=== PATIENT | female | born 1955 | race Caucasian/White ===

== ENCOUNTER 2017-10-17 06:24 | Inpatient (IN) | payer BC, MEDICARE, OTHER ==
--- NOTE | 2017-09-26 07:44 | ANES ---
Anesthesia Pre Procedure Eval HOME MEDICATIONS Ibuprofen 400 mg PO Q4H PRN 09/25/17 [Last Taken Unknown] Allergies/Adverse Reactions: Allergies Allergy/AdvReac Type Severity Reaction Status Date / Time No Known Drug Allergies Allergy Verified 09/25/17 12:27 - Planned Procedure Medication List Reviewed:: Yes Allergies Verified: Yes Medical History (Last Reviewed 09/26/17 @ 07:40 by Everett Rojas CRNA) Cancer Consumes alcohol occasionally Degenerative joint disease of knee Lives with spouse No history of regular tobacco use No illicit drug use Postmenopausal Shingles Surgical History (Last Reviewed 09/26/17 @ 07:40 by Everett Rojas CRNA) H/O Spinal surgery History of hysterectomy History of tonsillectomy History of wisdom tooth extraction Family History (Last Reviewed 09/26/17 @ 07:40 by Everett Rojas CRNA) Sister Bladder cancer Mother A-fib COPD (chronic obstructive pulmonary disease) Grandfather Throat cancer Father Asthma Aunt Breast cancer - Family Anesthesia History Family History:: no untoward family reactions to anesthesia, no familial bleeding tendencies, no family history of clotting disorders, no family history of premature - Airway/Neck/Teeth Within Normal Limits:: Yes Teeth Condition: Intact Neck Exam: non-tender, full range of motion Mallampatti Score: 2 Thyromental (T-M) distance: > 6 cm Mandibulo Hyoid distance: > 3 cm - Respiratory Respiratory: chest non-tender, lungs clear Smoking Status: Never smoker Sleep Apnea currently treated: No Sleep Apnea by current assessment: No - Cardiovascular Patient History - Cardiac/Respiratory: No pertinent hx Tolerates Activity: Good Heart Sounds: S1 & S2, Regular - Anesthesia Assessment and Plan Narrative: Exaggerated neuro response to reflex testing, RLS and other exaggerated neurologic responses since her spine surgery 30 years ago. ASA Class: II Anesthesia Type Plan: Block, Spinal Planned difficult intubation/equipment available: No - adductor canal block for post op pain relief
[~2017-10-17 06:24] MED LIST: MORPHINE SULFATE 15 MG TABLET.SA PO PRN; ROPIVACAINE HCL/PF 100 MG, EPINEPHrine 0.2 MG, KETOROLAC TROMETHAMINE 30 MG in NORMAL S... IJ PRN; TRANEXAMIC ACID 1,000 MG in NORMAL SALINE 100 ML IV PRN; ceFAZolin SODIUM 1 GM VIAL IV PRN
[2017-10-17] MEDS: RINGER'S SOLUTION,LACTATED 1,000 ML IV PRN ×3 (07:13→09:14)
[2017-10-17] MEDS ORDERED: oxyCODONE HCL/ACETAMINOPHEN 1 TAB TABLET PO PRN (09:53)
[2017-10-17] MEDS ORDERED: diphenhydrAMINE HCL 50 MG/ML VIAL IV PRN (09:53)
[2017-10-17] MEDS ORDERED: ONDANSETRON HCL/PF 2 MG/ML VIAL IV PRN (09:53)
[2017-10-17] MEDS ORDERED: MAGNESIUM HYDROXIDE 30 ML UDC PO PRN (09:53)
[2017-10-17] MEDS ORDERED: MORPHINE SULFATE 2 MG/ML DISP.SYRIN IV PRN (09:53)
[2017-10-17] MEDS ORDERED: ZOLPIDEM TARTRATE 5 MG TABLET PO PRN (09:53)
[2017-10-17] MEDS ORDERED: MAG HYDROX/ALUMINUM HYD/SIMETH 30 ML UDC PO PRN (09:53)
[2017-10-17] MEDS ORDERED: ACETAMINOPHEN 500 MG TABLET PO PRN (09:53)
--- NOTE | 2017-10-17 09:53 | OR ---
Operative Report - Dictated Report Narrative: Date: 10/17/2017 Preoperative diagnosis: Right Knee degenerative joint disease. Postoperative diagnosis: Right Knee degenerative joint disease. Procedure: Right Total knee arthroplasty. Surgeon: Edward Foreman M.D. Sales Order Administrator: Tripp Pimentel PA-C Anesthesia: Spinal with regional block and local periarticular joint injection. Complications: None Specimens: Bone for disposal. Estimated blood loss: Minimal. Tourniquet time: 87 Minutes at 325 millimeters of mercury. Retained implants: Depuy Attune size 4 right lugged cemented posterior stabilized femoral component. Size 5 fixed-bearing cemented tibial platform. 4 by 7 millimeter posterior stabilized cross-linked tibial insert. 35 millimeter medialized patella button. Indications: Mrs. Yoon is a 61-year-old female who has had long-standing right knee pain and arthrosis. This patient was followed in my clinic for period of time with significant complaints of right knee pain consistent with arthritic changes. She had failed conservative measures including, but not limited to, activity modification, passage of time, medications, and other conservative measures. Patient wished to proceed with surgical treatment. The risks, benefits, and alternatives were discussed in clinic. The risks of , blood clots, bleeding, infection, nerve/tendon blood vessel/ injury, malposition of components, intraoperative fracture, postoperative limited range of motion, persistent pain, failure of components, and need for additional procedures. Patient wished to proceed consent was obtained after answering all questions. Procedure: After marking the correct extremity on the floor, the patient was taken to the operating room. A timeout was performed. IV antibiotics consisting of Ancef were administered prior to the procedure. A regional followed by spinal anesthetic was induced by anesthesia, per my request, on the operative table with all bony prominences well-padded. Camp catheter was placed, and a bump was placed under the operative side buttock. SCDs and RAUL hose were utilized on the nonoperative leg. A well-padded tourniquet was applied to the operative thigh. The operative leg was then pre-scrubbed with alcohol prepped, and draped in a standard sterile fashion. After exsanguinating the extremity with an Esmarch bandage, the tourniquet was inflated. After marking out the anterior knee for standard incision centered over the patella, the skin was incised and dissected down to the joint retinaculum. The joint retinaculum was marked out as well as the horizontal axis of the patella, and a standard medial parapatellar arthrotomy was then made. The most proximal aspect of the quadriceps tendon and the patella tendon insertion were protected from release. A partial synovectomy was performed as well as a resection of the infrapatellar fat pad. The distal femoral fat pad proximal to the trochlea was also resected using cautery. The soft tissues were elevated off the medial aspect of the proximal tibia using a Soto elevator ensuring that we did not transect the medial collateral ligament. Upon initial evaluation range of motion was approximately 0 degrees to 130 degrees of flexion. There were signs of advanced arthrosis in the medial, lateral, and patellofemoral joint spaces. There were large marginal osteophytes which were removed with a rongeur. The knee was hyperflexed and the patella was tucked laterally. Protecting the surrounding soft tissues with Homans, an entry drill was placed down the femoral canal using Whitesides line for guidance into the entry point. The intramedullary femoral alignment selene was utilized in order to cut the distal femur in 5 degrees of valgus resecting 10 millimeters of bone. Next the distal femur was sized to a size 4. A posterior referencing guide was utilized to place the distal femoral cutting block in 3 degrees of external rotation. This was pinned into place. The rotation was confirmed both visually and based on anatomic landmarks. The 4 in 1 cutting jig of the appropriate size was utilized in order to make all bony cuts. The angle wing was used to ensure no notching. Retractors were utilized in order to protect surrounding soft tissues. This cut did not result in any excessive notching. We then cut the box centered over the distal femur. This allowed for resection of the anterior and posterior cruciate ligaments. I then turned my attention to the preparation of the tibia. Using an extra medullary tibial alignment selene, 3 millimeters of bone was resected off the medial articular surface. This was made perpendicular to the mechanical axis of the joint with the alignment selene centered over the ankle mortise. The alignment selene was checked and was noted to be parallel to the mechanical axis, centered over the medial one third of the tibial tubercle, paralleling the anterior surface of the tibia. We then turned our attention to the remaining meniscus and soft tissues. These were removed while protecting the surrounding ligaments and soft tissues. The marginal osteophytes off the anterior, posterior, medial, lateral aspects of the femur and tibia were removed. The tibia was sized out to a size 5. Next the tibia was drilled and punched in an externally rotated position. Next the trial femur and a series of tibial inserts were utilized in order to allow for full extension and maximal flexion. It was found that a 7 millimeter insert gave the best range of motion and stability at multiple flexion points as well as at full extension there was less than 2 mm of gapping both medially and laterally. There is minimal anterior translation with the knee at 90 degrees of flexion and no signs of being able to dislocate the knee. The patella was then prepared. The initial thickness was 22 millimeters. This was reamed down to 12 millimeters parallel to the anterior surface of the patella. It was sized out to a size 35 medialized patella button. This was then drilled and trialed. Without any medial restraint the patella tracked appropriately and did not sublux or dislocate. At this point, it was felt these were the appropriate sized implants, and all trials were removed. The standard periarticular joint injection consisting of ropivacaine, Toradol, and epinephrine were injected into the periarticular joint tissues. The bony surfaces were thoroughly irrigated with a pulsatile- suction saline irrigation device. A bone plug from the prior resected anterior chamfer cut was placed into the drill hole at the distal femur. The bony surfaces were then dried in preparation for placement of the implants. The cement was vacuum mixed per the asp developer's instructions. The cement was placed on the dry bony surfaces and posterior aspect of the implants. The implants were impacted into place, removing all extruded cement. At this point anesthesia administered tranexamic acid per protocol intravenously. The knee was placed in extension with axial loading with the trial insert while the cement cured. Once the cement cured, all remaining extruded cement was removed. The knee was placed through a range of motion with the trial insert to ensure appropriate range of motion and stability. Final range of motion was approximately 0 to 125 degrees. The knee was again thoroughly irrigated with pulsatile saline lavage. The final polyethylene insert was then impacted into place ensuring no retained soft tissues. The remaining periarticular joint injection was injected. A medium Hemovac drain was placed exiting superior laterally. The knee was then placed over a triangle and the arthrotomy was closed with interrupted #1 Vicryl after thoroughly irrigating the joint. The deep and subcutaneous tissues were closed with interrupted 0 and 3-0 Vicryl respectively. Skin was closed with a running subcutaneous 3-0 Monocryl and Prineo Dermabond dressing. 4 x 4's, Sof-Rol, and a full leg Nathaniel wrap were applied. All sponge, needle, blade, and instrument counts were correct prior to closing the wounds. Postoperative condition: The patient was awoken and transferred to the postanesthesia care unit in stable condition. Plan is to be admitted to the inpatient medical/surgical floor postoperatively for 24 hours of IV antibiotics , physical therapy, occupational therapy, and medical comanagement. Patient will be weightbearing as tolerated with range of motion as tolerated. DVT prophylaxis will be with SCDs, RAUL hose, and pharmacological anticoagulation. Anticipated hospital stay is approximately 1-3 days.
--- NOTE | 2017-10-17 10:10 | ANES ---
Post Anesthesia Discharge - Transfer of Care Transfer of Care handoff given to nurse: Yes - Discharge from PACU Discharge from PACU when meets criteria: Yes - Discharge to ASU Discharge to ASU-no complications/pt stable: Yes
--- NOTE | 2017-10-17 10:13 | ANES ---
Anesthesia Procedure Note Procedure Note: ANESTHESIA PROCEDURE NOTE Date of Procedure: 10/17/2017. Time of procedure: 0750. Performed by: Kishan Roberson CRNA Reconciliation Specialist: None. Preprocedure diagnosis: Right knee degenerative joint disease. Post procedure diagnosis: Same. Procedure: Right ultrasound guided adductor canal block for postoperative analgesia. Indications: The patient is a 61 -year-old female, requesting right ultrasound- guided abductor canal block for postoperative analgesia related to right total knee arthroplasty. Findings: See below. Details of the procedure: The tissue over the intended target site was cleansed with ChloraPrepand draped in a sterile fashion. 2 ml Lidocaine 1 % was infiltrated to the skin and subcutaneous tissue at the intended target site. Under sterile technique and ultrasound guidance a 18-gauge Tuohy needle was inserted through the right sartorius muscle to the saphenous nerve just anterior and medial to the superficial femoral artery and vein. 15 mL's of 0.5% bupivacaine was injected after negative aspiration for blood. Needle tip and spread of local anesthetic surrounding the saphenous nerve was observed throughout the injection with real time ultrasound visualization. No complications were noted. The images were retained in the Hospital medical database . EBL: Minimal. Fluids: N/A. Specimen: N/A. Post procedure condition: The patient tolerated the procedure well. No complications were noted. Thank you for this consultation. Kishan Roberson CRNA
[2017-10-17] MEDS: DEXTROSE 5%-LACTATED RINGERS 1,000 ML IV PRN ×2 (10:59→20:13)
[2017-10-17] MEDS: KETOROLAC TROMETHAMINE 15 MG/ML VIAL IV SCH ×3 (11:00→21:42)
[2017-10-17] MEDS: ceFAZolin SODIUM 1 GM in DEXTROSE 5 % IN WATER 100 ML IV SCH ×6 (11:10→23:40)
--- NOTE | 2017-10-17 12:36 | ANES ---
Post Anesthesia Assessment - Vital Signs Vitals: Last Vital Signs Temp 36.4 C 10/17/17 11:33 Pulse 65 10/17/17 12:18 Resp 16 10/17/17 12:18 BP 130/61 10/17/17 12:03 Pulse Ox 98 10/17/17 12:18 Airway Patency: Normal - Mental Status Level Of Consciousness: Awake - Pain Level Pain Score: 0 - N/V Assessment Nausea/Vomiting Presence: None Dehydration:: No
[2017-10-17] MEDS: MORPHINE SULFATE 15 MG TABLET.SA PO SCH (20:24)
[2017-10-17] MEDS ORDERED: SENNOSIDES/DOCUSATE SODIUM 1 TAB TABLET PO SCH (21:00)
[2017-10-18] MEDS: KETOROLAC TROMETHAMINE 15 MG/ML VIAL IV SCH ×2 (03:53→09:01)
[2017-10-18 04:24] LABS: Hematocrit 32.2 % (37.0-47.0); Hemoglobin 10.6 gm/dL (12.5-16.0); Mean Cell Volume 91.7 fl (78-100); Mean Corpuscular Hemoglobin 30.2 pg (27-31); Mean Corpuscular Hgb Conc 32.9 g/dl (32-36); Mean Platelet Volume 8.8 fl (8-12.5); Platelet Count 180 K/mm3 (150-450); Red Blood Count 3.51 M/mm3 (4.2-5.4); Red Cell Distribution Width 13.2 % (11.5-14.0); White Blood Count 6.6 K/mm3 (4.0-10.5)
[2017-10-18 04:35] LABS: Anion Gap 7.9 mmol/L (6.8-13.8); BUN/Creatinine Ratio 17.5 (9.0-21.6); Calcium * 8.6 mg/dL (7.9-10.9); Estimated Creat Clear 97.6; Potassium 3.9 mmol/L (3.4-4.6)
[2017-10-18] MEDS ORDERED: MORPHINE SULFATE 10 MG/0.5 ML SYRINGE PO PRN (08:52)
[2017-10-18] MEDS ORDERED: ENOXAPARIN SODIUM 40 MG/0.4 ML SYRG SC SCH (08:54)
[2017-10-18] MEDS: MORPHINE SULFATE 15 MG TABLET.SA PO SCH (09:00)
--- NOTE | 2017-10-18 12:25 | DS ---
(1) Acute blood loss anemia Problem: Acute (2) S/P total knee replacement Problem: Acute Qualifiers: Laterality: right Qualified Code(s): Z96.651 - Presence of right artificial knee joint (3) Degenerative joint disease of knee Problem: Chronic Qualifiers: Osteoarthritis type: primary Laterality: bilateral Qualified Code(s): M17.0 - Bilateral primary osteoarthritis of knee Description of Stay: Mrs. Yoon was admitted to the floor after undergoing right total knee arthroplasty. Tolerated this well. Was admitted to the floor postoperatively for 24 hours of IV antibiotics, pain control, medical comanagement, and occupational and physical therapy. OT and PT were consulted to assist with activities of daily living and ambulation. Was made weightbearing as tolerated with range of motion as tolerated. Pain was initially controlled with IV regimen. This was transitioned to oral once tolerating a by mouth intake. Was resumed on home diet and medications. Had a Camp catheter inserted and the operating room which was discontinued on postoperative day 1. A drain was placed intraoperatively into the knee which was discontinued on postoperative day 1. Lovenox SCD and RAUL hose were utilized for DVT prophylaxis. Vital signs remained stable to the hospital course. Serial labs were obtained which showed a final hemoglobin of 10.6 grams. BMP was reviewed and was stable. Physical examination throughout the hospital course showed an extremity that had sensation that was intact to light touch, palpable pulses, a benign wound, motor intact to the toes, ankle, and knee. Knee range of motion was approximately 5 degrees to 70 degrees. Once an oral pain regimen was tolerated and physical therapy goals were met, it was felt that they were stable for discharge to home. Instructions: Continue with weightbearing as tolerated and range of motion as tolerated. It is okay to shower and get the wound wet as long as there is no drainage from the wound. Do not bathe or soak the wound. If there is any drainage from the wound keep the wound clean and dry and cover with dry gauze and tape. Change every 2-3 days as needed if there is any drainage. Cover wound while showering if there is any drainage. Continue with physical therapy. Resume home diet. Report any fever over 101.5 Fahrenheit, uncontrolled pain, increased drainage, foul odor of drainage, new or increased calf pain or shortness of breath, or any other significant complaints. A 325mg dialy aspirin will be started after finishing anticoagulation if not allergic. Continue with RAUL hose on the operative extremity until instructed otherwise. No driving until instructed otherwise. Follow up in approximately 10-14 days. Procedures Performed: see notes below List Procedures: Right total knee arthroplasty Results and Findings: Lab Pending Results 10/18/17 04:05: WBC 6.6, RBC 3.51 L, Hgb 10.6 L, Hct 32.2 L, MCV 91.7, MCH 30.2 , MCHC 32.9, RDW 13.2, Plt Count 180, MPV 8.8 10/18/17 04:05: Sodium 140, Plasma Sodium 140, Potassium 3.9, Chloride 105, Carbon Dioxide 31.0, Anion Gap 7.9, BUN 10, Creatinine 0.57, Est GFR (Non-Af Amer) 115 D, BUN/Creatinine Ratio 17.5, Random Glucose 117 H, Calcium 8.6 Discharge Location: Home Disposition: Home self-care Condition: Good Discharge Activity: Activity as tolerated, Weight bearing Discharge Diet: General/regular food Additional Patient Instructions (free text): [facility] Physical Therapy outpatient at discharge, please set up appt. date/time. Prescriptions (Any new or edited meds): Enoxaparin Sodium [Lovenox] 40 mg SC Q24H #7 disp.syrin Morphine Sulfate 1 - 2 tab PO Q4H PRN #60 tab PRN Reason: Pain Morphine Sulfate [Ms Contin] 15 mg PO Q12H #20 tablet.sa Complete Home Medications List: Complete Home Medication List: Enoxaparin Sodium [Lovenox] 40 mg SC Q24H #7 disp.syrin 10/18/17 Morphine Sulfate 1 - 2 tab PO Q4H PRN #60 tab 10/18/17 Morphine Sulfate [Ms Contin] 15 mg PO Q12H #20 tablet.sa 10/18/17 Sennosides/Docusate Sodium [Senokot-S] 2 tab PO HS tablet 10/18/17 Amb Orders for Discharge: PT Evaluation and Treatment* Facility: [facility], Location: Rehabilitation Services
[2017-10-18 15:53] VITALS: BP 126/59
== END 2017-10-18 16:29 | disposition home or self-care (01) | DRG 470 ==
LOC: MS 06:24 → EDSTATUS 08:00
PROVIDERS: ADMIT Orthopaedic Surgery; ATTEND Orthopaedic Surgery
DX: M17.0 Bilateral primary osteoarthritis of knee; D62 Acute posthemorrhagic anemia
CPT/HCPCS: 36415; 73560; 80048; 85027; 97110; 97116; 97161; 97166; J2405

== ENCOUNTER 2020-09-09 13:35 | Inpatient (IN) ==
[2020-09-09] MEDS ORDERED: ONDANSETRON HCL/PF 2 MG/ML VIAL IV ONE (14:02)
--- NOTE | 2020-09-09 14:02 | ERNOTE ---
Abdominal HPI - Narrative Date of Service: 09/09/20 - General Chief Complaint: Abdominal Pain Time Seen by Provider: 09/09/20 13:52 Source: patient Exam Limitations: no limitations - Immun/Allergies/Home Medications Immunizatons: IMMUNIZATION HX Immunizations Up to Date Yes Allergies/Adverse Reactions: Allergies No Known Drug Allergies Allergy (Verified 09/09/20 13:19) Home Medications: HOME MEDICATIONS Atorvastatin Calcium 10 mg PO HS 09/09/20 [Last Taken Unknown] Cholecalciferol (Vitamin D3) [Vitamin D3] 1,250 mcg PO DAILY 09/09/20 [Last Taken Unknown] - Pain Score Pain Score #1 Pain Score: 7 Abdominal Pain Onset Location: RUQ, epigastric Pain Radiation: no radiation - History of Present Illness Narrative: The patient is a 64-year-old female who presents for abdominal pain which has been present since Sunday. There are associated symptoms of nausea and vomiting. The patient reports pain to RUQ, 7/10. There are no alleviating factors. There are aggravating factors of oral intake and activity. Previous treatments have included: None. 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 The social history is negative. The patient has had no known ill contacts. Patient presents from the walk-in clinic with concerns of cholecystitis due to location of pain and patient symptoms. Patient reports surgical history of hysterectomy. Patient denies daily alcohol use states that she only drinks on occasion. Review of Systems - Review of Systems Constitutional: Present: chills, diaphoresis, fatigue. Absent: fever EYE: Present: no symptoms reported ENT: Present: no symptoms reported. Absent: ear pain, nasal drainage, sore throat Respiratory: Present: cough. Absent: shortness of breath Cardiology: Present: no symptoms reported. Absent: chest pain Gastrointestinal/Abdominal: Present: nausea, vomiting, abdominal pain, eating less, drinking less. Absent: diarrhea Genitourinary: Present: no symptoms reported. Absent: dysuria, hematuria, decreased urinary output Musculoskeletal: Present: no symptoms reported. Absent: back pain Skin: Present: no symptoms reported. Absent: rash Neurological: Present: no symptoms reported. Absent: headache, dizziness/light- headedness Medical History (Last Reviewed 09/09/20 @ 13:59 by JESSICA Dickens) Paresthesias in right hand (Chronic) Status post endoscopic carpal tunnel release April 2020 Consumes alcohol occasionally 1 glass wine per month Lives with spouse No history of regular tobacco use No illicit drug use Breast lesion on mammography Onset Date: ~2017 Osteoarthritis of right knee Onset Date: Unknown Postmenopausal Cancer Onset Date: ~1988 spine mass removed 1988 Shingles Onset Date: Unknown Surgical History: Surgical History (Last Reviewed 09/09/20 @ 13:59 by JESSICA Dickens) S/P total knee replacement (Resolved) 10/17/17 Kellen History of carpal tunnel release Onset Date: ~05/06/20 Procedure: Endoscopic right carpal tunnel release Dr. 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 History of hysterectomy Onset Date: ~2001 2001 History of tonsillectomy Onset Date: Unknown as a child History of wisdom tooth extraction Onset Date: Unknown S/P total knee arthroplasty Onset Date: ~10/17/17 right Family History: Family History (Last Reviewed 09/09/20 @ 13:59 by JESSICA Dickens) Sister Bladder cancer, Onset Age: 65 Mother , 2019 A-fib COPD (chronic obstructive pulmonary disease) Hyperlipemia CVA (cerebral vascular accident) Arthritis Grandfather Throat cancer Father , 2019 - 16 yrs ago Asthma Throat cancer Aunt Breast cancer Cancer of utero-ovarian Sister Thyroid disease Social History: (Last Reviewed 09/09/20 @ 13:59 by JESSICA Dickens) Social History: Marital status: household members: spouse current occupational status: employed current occupation: retired, 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 Service: No Tobacco: Smoking Status: Never smoker Alcohol: alcohol intake: current alcohol intake frequency: holiday/special occasion Substance Use: substance use type: does not use Dietary Habits: caffeine: Yes Type: tea Physical Exam - Physical Exam General Appearance: Present: wd/wn, alert, moderate distress Head Exam: Present: normal inspection, no evidence of injury Eye Exam: Normal inspection: bilateral Neck: Present: normal inspection Respiratory: Present: no respiratory distress, normal breath sounds, no accessory muscle use, lungs clear Cardiovascular/Chest: Present: regular rate, rhythm, no murmur Gastrointestinal/Abdominal: Present: normal bowel sounds, nondistended, soft, no organomegaly, tenderness - RUQ, moderate epigastric, mild, guarding - RUQ, rebound, Recinos sign. Absent: mass Back Exam: Present: no CVA tenderness Neurological Exam: Present: alert, oriented, normal mood/affect, motor weakness - left upper extremity, residual disfunction Skin Exam: Present: normal color, warm/dry Progress - Date and Time Seen: Date and Time: 09/09/20 15:59 No surgery coverage, will review case with [facility] for potential transfer for surgical intervention. 09/09/20 16:05 Case reviewed with , will discuss with surgery. 09/09/20 16:51 Discussed case with , unable to accept patient after discussion with general surgery due to potential need for ERCP. 09/09/20 17:11 Case reviewed with CAROLINE Toribio. Do not have ERCP coverage on, discussed with , general surgery will not accept patient. 09/09/20 17:15 Will contact [facility] for transfer. 09/09/20 17:26 Case reviewed with , will plan for direct admission pending bed availability. 09/09/20 18:00 Case reviewed with , will plan for admission pending bed availability at [facility] for transfer for ERCP vs surgical intervention. This was reviewed at [facility] with patient and verbalized understanding and agrees with plan of care. - Results and Orders Patient's Lab Results:: I have reviewed the patient's lab results. - Vital Signs Patient's Vital Signs:: I have reviewed the patient's vital signs. Vital Signs: Vital Signs 09/09/20 13:45 Temperature 36.9 C Pulse Rate 83 Respiratory Rate 15 Blood Pressure 143/80 O2 Sat by Pulse Oximetry 97 - CT/Ultrasound CT/Ultrasound Narrative: IMPRESSION: 1. DISTENDED GALLBLADDER WITH ECHOGENIC SLUDGE AND GALLSTONES. THERE IS ABNORMAL GALLBLADDER WALL THICKENING WITH PERICHOLECYSTIC FLUID. THIS WOULD BE CONSISTENT WITH ACUTE CHOLECYSTITIS. 2. DILATED COMMON BILE DUCT WITHOUT DEFINABLE CHOLEDOCHOLITHIASIS. 3. SUBOPTIMAL VISUALIZATION OF THE PANCREAS. 4. OTHERWISE UNREMARKABLE ULTRASOUND OF THE ABDOMEN Electronically signed by Dean Begum M.D.. - Progress/Reassessment Chief Complaint: Abdominal Pain Progress:: Improved Departure Clinical Impression: Elevated liver enzymes, Cholecystitis - Departure Disposition: Still a patient Condition: Stable
[2020-09-09] MEDS ORDERED: KETOROLAC TROMETHAMINE 30 MG/ML VIAL IV ONE (14:03)
[2020-09-09 14:06] LABS: Mean Cell Volume 90.2 fl (78-100); Mean Corpuscular Hemoglobin 29.4 pg (27-31); Mean Corpuscular Hgb Conc 32.6 g/dl (32-36); Mean Platelet Volume 8.6 fl (8-12.5); Neutrophil # 6.2 K/mm3 (1.3-6.0); Platelet Count 293 K/mm3 (150-450); Red Cell Distribution Width 13.2 % (11.5-14.0); White Blood Count 8.4 K/mm3 (4.0-10.5)
[2020-09-09 14:09] LABS: Urine Bilirubin 3 mg/dl (NEGATIVE); Urine Ketone Negative (NEGATIVE); Urine Nitrite Negative (NEGATIVE); Urine Protein Negative (NEGATIVE); Urine Specific Gravity >=1.030 SP.GR. (1.005-1.010); Urine Urobilinogen Normal (NORMAL); Urine pH 5.5 pH (5.0-7.0)
[2020-09-09 14:16] LABS: Urine Appearance Slightly Cloudy (CLEAR); Urine Blood 5 /ul (NEGATIVE); Urine Color Amber
[2020-09-09 14:17] LABS: Urine Bacteria TRACE; Urine RBC 0-5 /hpf (0-5); Urine WBC 0-5 /hpf (0-5)
[2020-09-09 14:26] LABS: Albumin * 4.1 gm/dl (3.4-5.0); Anion Gap 16.3 mmol/L (6.8-13.8); BUN/Creatinine Ratio 17.3 (9.0-21.6); Bilirubin, Total 1.8 mg/dL (0.0-1.1); CRP 0.4 mg/dL (0.0-0.9); Ca. Corrected For Albumin 8.7 mg/dL (8.4-10.2); Calcium * 9.1 mg/dL (7.9-10.9); Carbon Dioxide 26.4 mmol/L (24-32.6); Potassium 3.7 mmol/L (3.4-4.6); Total Protein 8.1 gm/dL (6.2-8.2)
[2020-09-09] MEDS ORDERED: NORMAL SALINE 1,000 ML IV PRN (14:52)
[2020-09-09 15:05] LABS: INR 1.03 INR (0.92-1.08); Partial Thrombolplastin Time 26.8 Seconds (24-32); Prothrombin Time (Patient) 10.7 Seconds (9.1-10.7)
[2020-09-09] MEDS ORDERED: CEFEPIME HCL 1 GM/100 ML BAG IV ONE (18:21)
[2020-09-09] MEDS ORDERED: MORPHINE SULFATE 2 MG/ML DISP.SYRIN IV PRN (18:56)
[2020-09-09] MEDS ORDERED: NORMAL SALINE 1,000 ML IV ONE (18:57)
[2020-09-09] MEDS ORDERED: CEFEPIME HCL 1 GM in DEXTROSE 5 % IN WATER 100 ML IV ONE ×2 (19:00)
--- NOTE | 2020-09-09 19:29 | HP ---
Chief Complaint - Chief Complaint Date of Service: 09/09/20 Time of Service: 19:21 Chief Complaint: Abdominal pain/nausea and vomiting History of Present Illness: 64-year-old female with history of hyperlipidemia presented to the ER this evening after 4 days of ongoing abdominal pain, nausea, vomiting. No history of abdominal surgeries. In the ER she was found to have a normal CBC, normal coag panel, normal UA. On her CHEM panel she had an elevated total bilirubin at 1.8, and elevated GGT at 845, and elevated AST at 407, and elevated ALT at 1093, and an elevated alk phos of 366. Ultrasound of her abdomen showed a distended gallbladder with gallstones and sludge consistent with acute cholecystitis. She also had a dilated common bile duct with no definable choledocholithiasis. No general surgeon on-call at this time so patient was said to be transferred to [facility] but they did not accept as they want her to have an ERCP first. The [facility] was contacted who accepted the patient but they do not have a bed at this time as the patient will be tucked in and kept comfortable while here tonight with hopefull transfer to [facility] tomorrow. She received some Toradol and some nausea medicine was very comfortable when I examined her in the ER. Patient's vital signs been stable and she has no concerns at this time. 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 History of hysterectomy Onset Date: ~2001 2001 History of tonsillectomy Onset Date: Unknown as a child History of wisdom tooth extraction Onset Date: Unknown S/P total knee arthroplasty Onset Date: ~10/17/17 right Family History: Family History (Last Reviewed 09/09/20 @ 13:59 by JESSICA Dickens) Sister Bladder cancer, Onset Age: 65 Mother , 2019 A-fib COPD (chronic obstructive pulmonary disease) Hyperlipemia CVA (cerebral vascular accident) Arthritis Grandfather Throat cancer Father , 2019 - 16 yrs ago Asthma Throat cancer Aunt Breast cancer Cancer of utero-ovarian Sister Thyroid disease Social History: (Last Reviewed 09/09/20 @ 13:59 by JESSICA Dickens) Social History: Marital status: household members: spouse current occupational status: employed current occupation: retired, 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 Absent: Hematemesis, Constipation, Diarrhea Genitourinary: Present: No Symptoms Reported Musculoskeletal: Present: No Symptoms Reported Neurological: Present: No Symptoms Reported Skin: Present: No Symptoms Reported Immunizations: IMMUNIZATION HX Immunizations Up to Date Yes Allergies/Adverse Reactions: Allergies Allergy/AdvReac Type Severity Reaction Status Date / Time No Known Drug Allergies Allergy Verified 09/09/20 13:19 Home Medications: HOME MEDICATIONS cholecalciferol (vitamin D3) 10 mcg (400 unit) capsule 800 unit PO DAILY #1 cap 02/04/20 [Last Taken Unknown] atorvastatin 10 mg tablet 10 mg PO HS #30 tab 05/17/20 [Last Taken Unknown] Exam - Exam Vital Signs: Vital Signs - Last Taken Temp 36.9 C 09/09/20 13:45 Pulse 63 09/09/20 18:00 Resp 16 09/09/20 18:00 BP 129/64 09/09/20 18:00 Pulse Ox 96 09/09/20 18:00 Constitutional: Present: Alert, Oriented x3, Cooperative, Well developed, Mild distress ENT Exam: Present: hearing grossly normal. Absent: nasal congestion, nasal drainage Eye Exam: bilateral eye: normal inspection, EOMI Neck: Present: non-tender, supple Respiratory: Present: lungs clear, normal breath sounds Cardiovascular/Chest: Present: regular rate, rhythm, no murmur Peripheral Pulses: dorsalis-pedis (R): 2+, dorsalis-pedis (L): 2+ Abdomen: Present: Normal bowel sounds, tender - Right upper quadrant. Absent: guarding, rigidity, CVA tenderness, suprapubic tenderness Extremity: Present: non-tender, normal inspection Skin Exam: Present: normal color, warm/dry Neurologic: Present: alert, normal mood/affect, oriented x 3 Appearance: Present: appropriate appearance, appropriate insight Eye contact: Present: cooperative, good eye contact Thoughts: Present: normal thought pattern, normal mood /affect Diagnostic Studies: Abnormal Lab Results 09/09/20 09/09/20 09/09/20 Range/Units 13:54 14:00 14:00 Lymphocytes % 16.4 L (20-51) % Neutrophils # 6.2 H (1.3-6.0) K/mm3 Lymphocytes # 1.38 L (1.5-3.5) k/mm3 Anion Gap 16.3 H (6.8-13.8) mmol/L Random Glucose 120 H (70-110) mg/dL Total Bilirubin 1.8 H (0.0-1.1) mg/dL GGT (4-104) U/L AST 407 H (0-48) U/L ALT 1093 H (19-67) U/L Alkaline Phosphatase 366 H (50-170) U/L Urine Blood 5 H (NEGATIVE) /ul Urine Bilirubin 3 H (NEGATIVE) mg/dl Ur Epithelial Cells 10-25 H (0-5) /hpf 09/09/20 Range/Units 14:00 Lymphocytes % (20-51) % Neutrophils # (1.3-6.0) K/mm3 Lymphocytes # (1.5-3.5) k/mm3 Anion Gap (6.8-13.8) mmol/L Random Glucose (70-110) mg/dL Total Bilirubin (0.0-1.1) mg/dL GGT 845 H (4-104) U/L AST (0-48) U/L ALT (19-67) U/L Alkaline Phosphatase (50-170) U/L Urine Blood (NEGATIVE) /ul Urine Bilirubin (NEGATIVE) mg/dl Ur Epithelial Cells (0-5) /hpf Laboratory Results WBC 8.4 K/mm3 (4.0-10.5) 09/09/20 14:00 RBC 5.10 M/mm3 (4.2-5.4) 09/09/20 14:00 Hgb 15.0 gm/dL (12.5-16.0) 09/09/20 14:00 Hct 46.0 % (37.0-47.0) 09/09/20 14:00 MCV 90.2 fl (78-100) 09/09/20 14:00 MCH 29.4 pg (27-31) 09/09/20 14:00 MCHC 32.6 g/dl (32-36) 09/09/20 14:00 RDW 13.2 % (11.5-14.0) 09/09/20 14:00 Plt Count 293 K/mm3 (150-450) 09/09/20 14:00 MPV 8.6 fl (8-12.5) 09/09/20 14:00 Immature Gran % (Auto) 0.20 % (0.001-0.429) 09/09/20 14:00 Immature Gran # (Auto) 0.02 K/mm3 (0.000-0.0310) 09/09/20 14:00 Neutrophils % 74.0 % (42-75.0) 09/09/20 14:00 Lymphocytes % 16.4 % (20-51) L 09/09/20 14:00 Monocytes % 7.7 % (0.0-9) 09/09/20 14:00 Eosinophils % 1.0 % (0.0-3.0) 09/09/20 14:00 Basophils % 0.7 % (0.0-1.0) 09/09/20 14:00 Nucleated RBC % 0.0 k/mm3 (0-1) 09/09/20 14:00 Neutrophils # 6.2 K/mm3 (1.3-6.0) H 09/09/20 14:00 Lymphocytes # 1.38 k/mm3 (1.5-3.5) L 09/09/20 14:00 Monocytes # 0.7 k/mm3 (0.0-1.0) 09/09/20 14:00 Eosinophils # 0.1 k/mm3 (0.0-0.7) 09/09/20 14:00 Absolute Basophils 0.1 k/mm3 (0.0-0.1) 09/09/20 14:00 PT 10.7 Seconds (9.1-10.7) 09/09/20 14:50 INR (Anticoag Therapy) 1.03 INR (0.92-1.08) 09/09/20 14:50 PTT ([place]ia) 26.8 Seconds (24-32) 09/09/20 14:50 Sodium 139 mmol/L (132-142) 09/09/20 14:00 Plasma Sodium 139 mmol/L (130-142) 09/09/20 14:00 Potassium 3.7 mmol/L (3.4-4.6) 09/09/20 14:00 Chloride 100 mmol/L (97-106) 09/09/20 14:00 Carbon Dioxide 26.4 mmol/L (24-32.6) 09/09/20 14:00 Anion Gap 16.3 mmol/L (6.8-13.8) H 09/09/20 14:00 BUN 13 mg/dL (3-23) 09/09/20 14:00 Creatinine 0.75 mg/dL (0.4-1.4) 09/09/20 14:00 Est GFR (Non-Af Amer) 83 mL/min (60-130) 09/09/20 14:00 BUN/Creatinine Ratio 17.3 (9.0-21.6) 09/09/20 14:00 Random Glucose 120 mg/dL (70-110) H 09/09/20 14:00 Calcium 9.1 mg/dL (7.9-10.9) 09/09/20 14:00 Calcium Adj for Albumin 8.7 mg/dL (8.4-10.2) 09/09/20 14:00 Total Bilirubin 1.8 mg/dL (0.0-1.1) H 09/09/20 14:00 GGT 845 U/L (4-104) H 09/09/20 14:00 AST 407 U/L (0-48) H 09/09/20 14:00 ALT 1093 U/L (19-67) H 09/09/20 14:00 Alkaline Phosphatase 366 U/L (50-170) H 09/09/20 14:00 C-Reactive Prot, Quant 0.4 mg/dL (0.0-0.9) 09/09/20 14:00 Total Protein 8.1 gm/dL (6.2-8.2) 09/09/20 14:00 Albumin 4.1 gm/dl (3.4-5.0) 09/09/20 14:00 Amylase 33 U/L (25-115) 09/09/20 14:00 Lipase 153 U/L (73-393) 09/09/20 14:00 Urine Color Kareen 09/09/20 13:54 Urine Appearance Slightly cloudy (CLEAR) 09/09/20 13:54 Urine pH 5.5 pH (5.0-7.0) 09/09/20 13:54 Ur Specific [place] >=1.030 SP.GR. (1.005-1.010) 09/09/20 13:54 Urine Protein Negative mg/dL (NEGATIVE) 09/09/20 13:54 Urine Glucose (UA) Negative mg/dL (NEGATIVE) 09/09/20 13:54 Urine Ketones Negative mg/dL (NEGATIVE) 09/09/20 13:54 Urine Blood 5 /ul (NEGATIVE) H 09/09/20 13:54 Urine Nitrate Negative (NEGATIVE) 09/09/20 13:54 Urine Bilirubin 3 mg/dl (NEGATIVE) H 09/09/20 13:54 Urine Urobilinogen Normal EU/dl (NORMAL) 09/09/20 13:54 Ur Leukocyte Esterase Negative /ul (NEGATIVE) 09/09/20 13:54 Urine RBC 0-5 /hpf (0-5) 09/09/20 13:54 Urine WBC 0-5 /hpf (0-5) 09/09/20 13:54 Ur Epithelial Cells 10-25 /hpf (0-5) H 09/09/20 13:54 Urine Bacteria Trace (NONE) 09/09/20 13:54 Urine Culture Comments No culture indicated 09/09/20 13:54 Assessment/Plan - Narrative Narrative: 64-year-old female with history of hyperlipidemia admitted to the hospital under acute care due to cholecystitis and elevated common bile duct with abnormal GI enzymes and protein. Patient currently comfortable after receiving some pain medicine in the ER. No longer having nausea with nausea medicine administered as well. Patient is waiting for transfer to the [facility] for further evaluation of her dilated common bile duct. If she is still here in the morning, we will discuss this case with our general surgeon once he comes in as he may look at her case and want to proceed with cholecystectomy here but if not the transfer has been started and will get her to the [facility] as quickly as we can. Ordered morphine 2 mg every 2 hours as needed as needed for pain. We will give her another liter of fluid as she is n.p.o. at this time. SCDs to be worn while in bed. Nurse will call questions or concerns. - Assessment/Plan (1) Cholecystitis Problem: Acute (2) Common bile duct dilatation Problem: Acute (3) Hyperbilirubinemia Problem: Acute (4) Elevated liver enzymes Problem: Acute (5) HLD (hyperlipidemia) Problem: Chronic Qualifiers:
[2020-09-09] MEDS ORDERED: KETOROLAC TROMETHAMINE 30 MG/ML VIAL IV PRN (21:49)
[2020-09-10] MEDS ORDERED: ONDANSETRON HCL/PF 2 MG/ML VIAL IV PRN (03:52)
[2020-09-10] MEDS ORDERED: NORMAL SALINE 1,000 ML IV ONE (03:53)
[2020-09-10] MEDS ORDERED: CEFEPIME HCL 1 GM in DEXTROSE 5 % IN WATER 100 ML IV SCH ×2 (16:15)
--- NOTE | 2020-09-10 16:34 | DS ---
Transfer Discharge Summary - Diagnosis(s)/Problems (1) Cholecystitis Problem: Acute (2) Common bile duct dilatation Problem: Acute (3) Hyperbilirubinemia Problem: Acute (4) Elevated liver enzymes Problem: Acute (5) HLD (hyperlipidemia) Problem: Chronic - Course Description of Stay: 64-year-old female with history of hyperlipidemia presented to the hospital with 4 days worsening abdominal pain with nausea and vomiting. Ultrasound of her abdomen showed gallstones in her gallbladder as well as some sludge. She had a dilated common bile duct at 7.0 cm. She had elevated liver enzymes, elevated GGT, elevated alk phos. Patient needs ERCP which is not offered here which is why we are transferring her to the [facility]. Patient is stable, vital signs been stable, no elevated white count. Patient is on cefepime. Abdominal pain resolved with Toradol. Nausea resolved. Patient is stable and feels well at this time. She should do well with procedure. Procedures Performed: none - Results and Findings Results and Findings: Laboratory Results - last 24 hr 09/09/20 18:31 SARS-CoV-2 (PCR) Not detected - Medications Medications: Active Medications Sodium Chloride (Sodium Chloride 0.9%) 1,000 mls @ 999 mls/hr IV .Q1H1M PRN PRN Reason: HYDRATION Stop: 10/09/20 14:53 Last Infusion: 09/09/20 16:28 Dose: Infused Documented by: Discontinued Medications Cefepime HCl (Maxipime 1 Gm Er Piggyback) 1 gm in 100 mls @ 200 mls/hr IV ONCE ONE Stop: 09/09/20 18:50 Last Admin: 09/09/20 19:27 Dose: Not Given Documented by: Cefepime HCl 1 gm/ Dextrose/ (Water) 100 mls @ 200 mls/hr IV ONCE ONE Stop: 09/09/20 19:29 Last Infusion: 09/09/20 19:56 Dose: Infused Documented by: Sodium Chloride (Sodium Chloride 0.9%) 1,000 mls @ 125 mls/hr IV .Q8H ONE Stop: 09/10/20 02:56 Last Infusion: 09/10/20 04:00 Dose: Infused Documented by: Sodium Chloride (Sodium Chloride 0.9%) 1,000 mls @ 125 mls/hr IV .Q8H ONE Stop: 09/10/20 11:52 Last Infusion: 09/10/20 12:01 Dose: Infused Documented by: Ketorolac Tromethamine (Ketorolac Tromethamine 30 Mg/Ml Vial) 30 mg IV ONCE ONE Stop: 09/09/20 14:04 Last Admin: 09/09/20 14:14 Dose: 30 mg Documented by: Ondansetron HCl (Ondansetron Hcl/Pf 2 Mg/Ml Vial) 4 mg IV ONCE ONE Stop: 09/09/20 14:03 Last Admin: 09/09/20 14:18 Dose: 4 mg Documented by: - Disposition Disposition: Short Term Hospital Inpatient Condition: Stable Discharge Date: 09/10/20 Discharge Time: 16:34
[2020-09-10 16:45] VITALS: BP 130/62
== END 2020-09-10 17:40 | disposition short-term general hospital (02) | DRG 446 ==
LOC: ER 13:35 → MS 19:31
PROVIDERS: ADMIT Family Medicine; ATTEND Family Medicine